=== PATIENT | female | born 2000 | race Caucasian/White ===

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

== ENCOUNTER 2021-02-02 14:38 | Emergency (ER) | payer MEDICAID ==
[~2021-02-02] VITALS: Ht 172.7 cm; Wt 68.2 kg
[~2021-02-02 14:38] MED LIST: ALBU6.7H9 INH
[2021-02-02 14:49] VITALS: BP 132/67
[2021-02-02] MEDS ORDERED: AZIT-72 PO (16:10)
[2021-02-02] MEDS ORDERED: ALBU8HFA PO (16:10)
--- NOTE | 2021-02-02 16:59 | NUR ---
Patient seen and assessed by provider.
== END 2021-02-02 17:01 | disposition home or self-care (01) ==
LOC: ER 14:38
DX: J45.909 Unspecified asthma, uncomplicated (principal); Z87.891 Personal history of nicotine dependence; Z72.89 Other problems related to lifestyle; Z88.0 Allergy status to penicillin; Z88.5 Allergy status to narcotic agent; Z79.899 Other long term (current) drug therapy
CPT/HCPCS: 99283

== ENCOUNTER 2021-05-18 12:59 | Emergency (ER) | payer MEDICAID ==
[~2021-05-18] VITALS: Ht 172.7 cm; Wt 55.4 kg
[2021-05-18 13:14] VITALS: BP 108/65
== END 2021-05-18 15:24 | disposition home or self-care (01) ==
LOC: ER 13:00
DX: R07.89 Other chest pain (principal); J45.909 Unspecified asthma, uncomplicated; Z88.0 Allergy status to penicillin; Z88.5 Allergy status to narcotic agent; Z79.899 Other long term (current) drug therapy
CPT/HCPCS: 71045; 93005; 99284

== ENCOUNTER 2022-01-08 12:17 | Emergency (ER) | payer MEDICAID ==
[~2022-01-08] VITALS: Ht 172.7 cm; Wt 56.8 kg
[2022-01-08 12:31] VITALS: BP 114/63
[2022-01-08] MEDS ORDERED: ALBU6.7H9 INH (13:52)
== END 2022-01-08 14:22 | disposition home or self-care (01) ==
LOC: ER 12:18
DX: J45.909 Unspecified asthma, uncomplicated (principal); Z20.822 Contact with and (suspected) exposure to COVID-19; Z88.0 Allergy status to penicillin; Z79.899 Other long term (current) drug therapy
CPT/HCPCS: 87635; 99283; C9803

== ENCOUNTER 2023-04-05 13:14 | Emergency (ER) | payer MEDICAID ==
[~2023-04-05] VITALS: Ht 172.7 cm; Wt 63.0 kg
[~2023-04-05 13:14] MED LIST changes: +ALBU6.7H14 INH; -ALBU6.7H9 INH
[2023-04-05 13:21] VITALS: BP 120/71
== END 2023-04-05 15:37 | disposition left against medical advice (07) ==
LOC: ER 13:15
DX: R07.9 Chest pain, unspecified (principal); Z53.21 Procedure and treatment not carried out due to patient leaving prior to being seen by health care provider
CPT/HCPCS: 99281